=== PATIENT | female | born 1990 | race Hispanic/Latino ===

== ENCOUNTER 2020-09-28 10:04 | Emergency (ER) | payer OTHER ==
[2020-09-28 10:32] LABS: BASOPHILS % (AUTO) 0.6 % (0.0-5.0); EOSINOPHILS % (AUTO) 0.8 % (0.0-8.0); HEMATOCRIT 40.7 % (36-48); LYMPHOCYTES % (AUTO) 18.7 % (21.0-51.0); MEAN CORPUSCULAR HEMOGLOBIN 27.9 pg (27.0-33.0); MEAN CORPUSCULAR HGB CONC 31.9 g/dL (32.0-36.0); MEAN CORPUSCULAR VOLUME 87.3 fL (79-99); MONOCYTES % (AUTO) 5.1 % (3.0-13.0); PLATELET COUNT (AUTO) 374 K/uL (130-400); RED BLOOD CELL COUNT(AUTO) 4.66 MIL/uL (4.00-5.50); RED CELL DISTRIBUTION WIDTH 13.8 % (11.0-15.5)
[2020-09-28 10:44] LABS: CREATININE 0.9 mg/dL (0.5-1.5); POTASSIUM 3.6 mmol/L (3.5-5.1)
[2020-09-28 10:49] LABS: ALBUMIN 3.8 g/dL (3.5-5.0); BILIRUBIN,TOTAL 0.5 mg/dL (0.2-1.0); TOTAL PROTEIN, SERUM 7.8 g/dL (6.0-8.3)
[2020-09-28] MEDS ORDERED: MORPHINE SULFATE 4 MG/1ML SYG ONE (11:04)
[2020-09-28] MEDS ORDERED: SODIUM CHLORIDE 0.9% 1000ML 1,000 ML IV ONE (11:08)
== END 2020-09-28 13:27 | disposition home or self-care (01) ==
LOC: EDH 10:04
DX: N83.299 Other ovarian cyst, unspecified side (principal)
CPT/HCPCS: 36415; 76856; 80053; 85025; 96361; 96374; 99284; J2270; J7030

== ENCOUNTER 2023-04-14 07:35 | Day surgery (SDC) | payer OTHER ==
[2023-04-09 10:18] VITALS: BP 125/82; PULSE 71; RESP 18
[2023-04-09 10:24] LABS: BASOPHILS # (AUTO) 0.07 K/uL (0.00-0.20); EOSINOPHILS % (AUTO) 1.5 % (0.0-8.0); HEMATOCRIT 43.7 % (36-48); IMMATURE GRANULOCYTE ABSOLUTE 0.01 K/uL (0-1); LYMPHOCYTES # (AUTO) 1.8 K/uL (1.0-4.8); LYMPHOCYTES % (AUTO) 26.3 % (21.0-51.0); MEAN CORPUSCULAR HEMOGLOBIN 28.7 pg (27.0-33.0); MEAN CORPUSCULAR HGB CONC 32.5 g/dL (32.0-36.0); MEAN CORPUSCULAR VOLUME 88.3 fL (79-99); MONOCYTES # (AUTO) 0.4 K/uL (0.1-1.0); MONOCYTES % (AUTO) 5.2 % (3.0-13.0); NEUTROPHILS # (AUTO) 4.5 K/uL (1.8-7.7); NEUTROPHILS % (AUTO) 65.9 % (40.0-77.0); PLATELET COUNT (AUTO) 290 K/uL (130-400); RED BLOOD CELL COUNT(AUTO) 4.95 MIL/uL (4.00-5.50); RED CELL DISTRIBUTION WIDTH 13.5 % (11.0-15.5); WHITE BLOOD COUNT (AUTO) 6.9 K/uL (4.8-10.8)
[2023-04-09 10:37] LABS: CREATININE 0.7 mg/dL (0.5-1.5); POTASSIUM 4.6 mmol/L (3.5-5.1)
[2023-04-09 10:45] LABS: INR 0.99 (0.85-1.15); PROTHROMBIN TIME 11.5 SEC (9.6-11.6)
[2023-04-09 10:46] LABS: PARTIAL THROMBOPLASTIN TIME 31.2 SEC (26.3-35.5)
[2023-04-14] VITALS (21 sets, daily range): BP systolic 32–142; BP diastolic 64–83; PULSE 60–86; RESP 11–18
[~2023-04-14] VITALS: Ht 157.5 cm; Wt 90.5 kg
[2023-04-14] MEDS ORDERED: LACTATED RINGERS 1000ML 1,000 ML IV ONE (08:25)
[2023-04-14] MEDS ORDERED: CEFAZOLIN SODIUM 1 GM VIAL ONE (08:25)
[2023-04-14] MEDS: CEFAZOLIN SODIUM 2 GM VIAL ONE ×2 (08:33→11:04)
[2023-04-14] MEDS ORDERED: SUCCINYLCHOLINE 200MG/10ML SYR ONE (09:24)
[2023-04-14] MEDS ORDERED: NEOSTIGMINE 5MG/5ML SYR IV ONE (09:24)
[2023-04-14] MEDS ORDERED: GLYCOPYRROLATE 1 MG/5 ML SYRINGE ONE ×2 (09:24→11:52)
[2023-04-14] MEDS ORDERED: MIDAZOLAM HCL 1 MG/ML 2ML VIAL ONE ×2 (09:24→10:40)
[2023-04-14] MEDS ORDERED: LIDOCAINE PF 100MG/5ML (2%) SYRINGE 5ML ONE (09:24)
[2023-04-14] MEDS ORDERED: DEXAMETHASONE SOD PHOSPHATE 10MG/ML 1ML VIAL ONE (09:24)
[2023-04-14] MEDS ORDERED: PROPOFOL 10 MG/ML 20ML VIAL IV ONE ×2 (09:24→10:40)
[2023-04-14] MEDS ORDERED: FENTANYL CITRATE PF 50 MCG/1 ML 2ML VIAL ONE ×4 (09:25→12:02)
[2023-04-14] MEDS ORDERED: ONDANSETRON 4MG INJ ONE ×3 (09:25→12:56)
[2023-04-14] MEDS ORDERED: ROCURONIUM 10MG/1ML SYR 10 MG/ML ML ONE ×2 (09:25→10:40)
[2023-04-14] MEDS ORDERED: ROPIVACAINE 0.5% 5MG/ML 30ML IJ ONE ×2 (09:29→10:44)
[2023-04-14] MEDS ORDERED: LIDOCAINE HCL MPF 1% 5ML VIAL ONE (10:40)
[2023-04-14] MEDS ORDERED: EPHEDRINE SULFATE 50 MG/ML AMPULE ONE (11:28)
[2023-04-14] MEDS ORDERED: KETOROLAC 30MG VIAL (30MG/ML) ONE (11:50)
[2023-04-14] MEDS ORDERED: TRAM50TA4 PO (12:03)
[2023-04-14] MEDS ORDERED: METH-662 PO (12:03)
[2023-04-14] MEDS ORDERED: DOCU-116 PO (12:03)
[2023-04-14] MEDS ORDERED: GABA-529 PO (12:03)
[2023-04-14] MEDS ORDERED: MEPERIDINE-PF 25 MG/ML SYG ONE ×2 (12:56→13:10)
== END 2023-04-14 14:55 | disposition home or self-care (01) ==
LOC: DAH 07:35
PROVIDERS: ATTEND Surgery
DX: K43.0 Incisional hernia with obstruction, without gangrene (principal); I10 Essential (primary) hypertension; E11.9 Type 2 diabetes mellitus without complications; E66.01 Morbid (severe) obesity due to excess calories; Z79.84 Long term (current) use of oral hypoglycemic drugs; Z79.01 Long term (current) use of anticoagulants; Z98.890 Other specified postprocedural states
CPT/HCPCS: 80048; 84703; 85025; 85610; 85730; 36415; 64488; 49616; 81025; A6260; A4600; A4663; J7120; J3010 ×3; J0330; J3490 ×3; J1100; J2001; J2250; J2704; J2405 ×2; J1885; J2175 ×2; J2795 ×2; J0690; C1769 ×2; A4649; A4930 ×2; A4215; A4223; A4222; A4221; A4335; J7030; J2710